=== PATIENT | female | born 1990 | race American Indian/Alaskan Native ===

== ENCOUNTER 2016-10-11 19:46 | Outpatient (CLI) | payer MEDICAID ==
[2016-10-11 20:05] VITALS: BP 137/77
[2016-10-11] MEDS ORDERED: LACTATED RINGERS 1,000 ML IV ONE (20:19)
[2016-10-11 20:59] LABS: Bacteria,Urine 3+ /HPF (Negative); Bilirubin,Urine NEG (Negative); Blood,Urine NEG (Negative); Ketones,Urine NEG (Negative); Leukocyte Esterase,Urine LG (Negative); Mucus,Urine FEW /HPF; Nitrite,Urine NEG (Negative); Protein,Urine <15 mg/dL mg/dL (Negative); Urobilinogen,Urine < 2.0 mg/dL (<2.0)
== END 2016-10-11 21:22 | disposition home or self-care (01) ==
LOC: TRG 19:46
PROVIDERS: ATTEND Obstetrics & Gynecology
DX: O47.03 False labor before 37 completed weeks of gestation, third trimester (principal); Z3A.30 30 weeks gestation of pregnancy
CPT/HCPCS: 81001

== ENCOUNTER 2016-12-06 23:00 | Inpatient (IN) | payer MEDICAID ==
[2016-12-07] MEDS ORDERED: LACTATED RINGERS 1,000 ML IV ONE (01:11)
[2016-12-07 01:57] LABS: Hematocrit 32.9 % (30.3-42.9); Hemoglobin 10.9 gm/dl (10.1-14.3); Mean Corpuscular HGB Conc 33 % (30-34); Platelet Count 223 K/mm3 (140-440); Red Blood Count 5.19 M/mm3 (3.65-5.03); Red Cell Distribution Width 17.2 % (13.2-15.2); White Blood Count 6.6 K/mm3 (4.5-11.0)
[2016-12-07 01:59] LABS: Mean Corpuscular Hemoglobin 21 pg (28-32); Mean Corpuscular Volume 64 fl (79-97)
[2016-12-07] MEDS ORDERED: TYLENOL PO PRN ×2 (02:23→10:30)
[2016-12-07] MEDS ORDERED: COLACE PO PRN (02:23)
[2016-12-07] MEDS ORDERED: AMBIEN PO PRN (02:23)
--- NOTE | 2016-12-07 02:23 | History and Physical Report ---
History of Present Illness Date of examination: 12/07/16 Chief complaint: Diarrhea/frequent loose stools and non-reassuring status History of present illness: 26 yo with normal and early care for this who was seen in office today and who called me with persistent painful contractions q 10 minnutes and diarrhea/freguent loose stools. She was sent to triage and initially her cervix was unchanged from the office at 2 cm and 70% effaced and intact and status was Cat 1 with spaced out contractions. After a time of monitoring, I was called by triage nurse Masoud because of a change in status to tachycardia in the 170-180's. She is admitted to further assess status with BPP and WAYLON and prolonged monitoring, will consider induction of labor for non-reassuring status if fetus does not respond to maternal hydration. Currently maternal temp is 97.8. Known GBS negative, O pos, Rub Immune. Remainder of H&P is from [facility] and will be confirmed today Vital Signs Height: 64.0 in. Weight (lb): 145 BMI: 24.9 Pre- Weight: 145 BP: 112/ 62 mm Hg Chief Complaint/Current Status: c/o missed period, c/o nauseated...............................igarcia pt c/o spots on arms and legs Menstrual History Regularity: regular Menses every: 28 days Duration: 3-4 LMP: 03/12/2016 LMP reliability: month known LMP character: normal test type: urine test Date: 05/10/2016 BC at conception: none Planned ? no EDC Calculations LMP: 12/17/2016 EDC Confirmation: 12/17/2016 Gestational Age: 8 3/7 weeks Past History : 5 Term Births: 4 Premature Births: 0 Living Children: 4 Para: 4 Mult. Births: 0 Prev : 0 Prev. attempt? 0 Aborta: 0 Elect. Ab: 0 Spont. Ab: 0 Ectopics: 0 # 1 Delivery date: 02/01/2010 Weeks Gestation: 39.3 Delivery type: Vaginal Anesthesia type: epidural Delivery location: [facility] Sex: male weight: 7.31 Comments: none # 2 Delivery date: 10/22/2012 Weeks Gestation: 38 Delivery type: Vaginal Delivery location: [facility] Sex: male weight: 6.38 Comments: elevated BP # 3 Delivery date: 12/29/2013 Weeks Gestation: 38 Delivery type: Vaginal Anesthesia type: epidural Delivery location: [facility] Sex: female weight: 6.44 Comments: PROM # 4 Delivery date: 03/04/2015 Weeks Gestation: 40+4 Delivery type: Vaginal Anesthesia type: none Delivery location: [facility] Sex: female weight: 6.50 Comments: none Past Medical History: Reviewed history from 03/06/2012 and no changes required: Negative Past Medical History Past Surgical History: Reviewed history from 12/11/2009 and no changes required: negative Past Medical History Abnormal PAP: No ELBA Exposure: negative Infertility: negative Uterine Anomaly: negative Uterine Surgery (not C/S): negative Other Gynecologic Problems: negative Social Hx: Patient is single no e/t/d Genetic History Congenital Heart Defect: Mom: no Dad: no Craig Disease: Mom: no Dad: no Thalassemia Mom: no Dad: no Neural Tube Defect Mom: no Dad: no Down's Syndrome Mom: no Dad: no Jc-Sachs Mom: no Dad: no Sickle Cell Disease/Trait Mom: no Dad: no Hemophilia Mom: no Dad: no Muscular Dystrophy Mom: no Dad: no Cystic Fibrosis Mom: no Dad: no Franca Chorea Mom: no Dad: no Mental Retardation Mom: no Dad: no Fragile X Mom: no Dad: no Other Genetic/Chromosomal Disorder Mom: no Dad: no Child w/other defect Mom: no Dad: no Enviromental Exposures Xray Exposure: no Medication, drug, or alcohol use since LMP: no Chemical/Other Exposure: no Exposure to Cat Liter: no Hx of Parvovirus (Fifth Disease): no Active Medications (reviewed today): FORMULA 27-1 MG ORAL TABS ( VIT-FE FUMARATE-FA) 1 po q day as directed PROMETHAZINE HCL 25 MG TABS (PROMETHAZINE HCL) 1 po q 6 hrs prn nausea Current Allergies (reviewed today): No known allergies Laboratory Results Date/Time Collected: 05/10/2016 Urine HCG: positive Review of Systems See HPI General Denies fever, chills, sweats, anorexia, fatigue, weakness, malaise, weight loss and sleep disorder. Denies vaginal discharge, incontinence, dysuria, hematuria, urinary frequency, amenorrhea, menorrhagia, abnormal vaginal bleeding, pelvic pain, genital sores, decreased libido, painful periods, painful sex, urinary urgency, hot flashes, vaginal dryness, vaginal itching and vaginal odor. CV Denies chest pains, palpitations, syncope, dyspnea on exertion, orthopnea, PND and peripheral edema. Resp Denies cough, dyspnea at rest, excessive sputum, hemoptysis, wheezing and pleurisy. GI Denies nausea, vomiting, diarrhea, constipation, change in bowel habits, abdominal pain, melena, hematochezia, jaundice, gas/bloating, indigestion/ heartburn, dysphagia and odynophagia. Breast Denies left breast lump, right breast lump, nipple discharge, bloody discharge from nipple, breast pain, abnormal mammogram and breast enlargement. Psych Denies depression, anxiety, irritability and mood swings. PHYSICAL EXAM HEENT: normocephalic, no lesions or deformities Neck/Thyroid: supple, thyroid normal Skin no abnormal lesions or rashes Chest: respiratory effort normal, lungs clear to auscultation Breasts: skin/areolae normal, no masses, no nipple discharge, no erythema/warmth /tenderness, and axillae normal. CV: regular, normal S1-S2, no murmur, no rub, no gallop Abdomen: soft, non-tender, no masses, bowel sounds normal Musculoskeletal: grossly normal ROM in joints, no joint tenderness or muscle weakness Neuro: no gross anomalities Extremities: no discoloration or edema [employer] Exams Vulva/Vagina: normal appearance, no lesions. Cervix: normal appearance, no lesions. Uterus: unable to palpate due to patient's guarding Adnexae: unable to palpate due to patient's guarding Rectovaginal: exam defered Flowsheet View for Follow-up Visit Estimated weeks of gestation: 8 3/7 Weight: 145 Blood pressure: 112 / 62 Infant's Physician: N/A Past History - Obstetrical History : 5 Medications and Allergies Allergies Allergy/AdvReac Type Severity Reaction Status Date / Time No Known Allergies Allergy Verified 06/06/15 15:24 Home Medications Medication Instructions Recorded Confirmed Last Taken Type No Known Home Medications [No 03/05/15 06/06/15 Unknown History Reported Home Medications] - Vital Signs Vital signs: Vital Signs Pulse Pulse Ox 102 H 100 12/06/16 23:16 12/06/16 23:16 Temp Pulse Resp BP Pulse Ox 98.3 F 92 H 18 133/75 100 12/06/16 23:23 12/07/16 02:11 12/06/16 23:23 12/06/16 23:28 12/07/16 02:11 Results Result Diagrams: 12/07/16 01:30 Abnormal lab results 12/07/16 Range/Units 01:30 RBC 5.19 H (3.65-5.03) M/mm3 MCV 64 L (79-97) fl MCH 21 L (28-32) pg RDW 17.2 H (13.2-15.2) % All other labs normal. Assessment and Plan - Patient Problems (1) Non-reassuring status Current Visit: Yes Status: Acute Plan to address problem: prolonged monitoring, BPP, WAYLON (2) Colitis, enteritis, and gastroenteritis of presumed infectious origin Current Visit: Yes Status: Acute Plan to address problem: maternal rehydration, check electrolytes (3) Prolonged latent phase of labor Current Visit: Yes Status: Acute Plan to address problem: prolonged monitoring to assess this and maternal sedation (4) 38 weeks gestation of Current Visit: Yes Status: Acute
--- NOTE | 2016-12-07 02:42 | Event Note ---
Date: 12/07/16 tachycardia has resolved for the time being with maternal hydration. WAYLON is 7.9 and BPP is 6/8 but with now reactive NST is 8/10. Will observe overnight to be sure all this remains stable and to check electrolytes. Patient is probably in early or latent labor anyway. Will reevaluate if any changes.
[2016-12-07] MEDS ORDERED: LACTATED RINGERS 1,000 ML IV SCH (03:00)
[2016-12-07 04:04] LABS: Alanine Aminotransferase 6 units/L (7-56); Albumin 3.4 g/dL (3.9-5); Alkaline Phosphatase 159 units/L (35-129); Anion Gap 18 mmol/L; BUN/Creatinine Ratio 11.42; Blood Urea Nitrogen 8 mg/dL (7-17); Calcium 8.3 mg/dL (8.4-10.2); Carbon Dioxide 21 mmol/L (22-30); Chloride 100.4 mmol/L (98-107); Glucose 94 mg/dL (65-100); Potassium 3.7 mmol/L (3.6-5.0); Sodium 136 mmol/L (137-145); Total Protein 6.8 g/dL (6.3-8.2)
[2016-12-07] MEDS ORDERED: MINERAL OIL PO PRN (04:30)
[2016-12-07] MEDS ORDERED: STADOL IV PRN (04:30)
[2016-12-07] MEDS ORDERED: BRETHINE SUB-Q PRN (04:30)
[2016-12-07] MEDS ORDERED: ZOFRAN IV PRN (04:30)
[2016-12-07] MEDS ORDERED: XYLOCAINE 2% INFILTRATI ONE (04:30)
[2016-12-07] MEDS ORDERED: ePHEDrine SULFATE IV PRN ×2 (04:30→05:28)
[2016-12-07] MEDS ORDERED: NARCAN 0.4 MG/1 ML IV PRN (04:30)
[2016-12-07] MEDS ORDERED: BRETHINE IVP PRN (04:30)
[2016-12-07] MEDS ORDERED: SUBLIMAZE IV PRN (04:30)
--- NOTE | 2016-12-07 04:38 | Event Note ---
Date: 12/07/16 Now in active labor, has progressed to 4 cm. Will transfer to L&d and get epidural.
[2016-12-07] MEDS ORDERED: ePHEDrine SULFATE ONE (04:54)
[2016-12-07] MEDS ORDERED: PITOCin/NS 20 UNIT/1000ML DRIP 20 UNITS/1,000 ML BAG IV SCH ×2 (05:00→10:30)
[2016-12-07] MEDS ORDERED: PITOCin/NS 30 UNIT/500ML 30 UNITS/500 ML BAG IV SCH (05:00)
[2016-12-07] MEDS ORDERED: NARCAN 2 MG/2 ML IV PRN (05:28)
--- NOTE | 2016-12-07 05:28 | Anesthesia Consultation ---
Anesthesia Consult and Med Hx Date of service: 12/07/16 - Airway Anesthetic Teeth Evaluation: Good ROM Head & Neck: Adequate Mental/Hyoid Distance: Adequate Mallampati Class: Class II Intubation Access Assessment: Probably Good - Pulmonary Exam CTA: Yes - Cardiac Exam Cardiac Exam: RRR - Pre-Operative Health Status ASA Pre-Surgery Classification: ASA2 Proposed Anesthetic Plan: Epidural - Pulmonary Hx Asthma: No COPD: No Hx Pneumonia: No - Cardiovascular System Hx Hypertension: No - Central Nervous System Hx Seizures: No Hx Psychiatric Problems: No - Endocrine Hx Renal Disease: No Hx End Stage Renal Disease: No Hx Hypothyroidism: No Hx Hyperthyroidism: No - Hematic Hx Anemia: No Hx Sickle Cell Disease: No - Other Systems Hx Alcohol Use: No
[2016-12-07] MEDS: LACTATED RINGERS 1,000 ML IV SCH ×2 (05:42→07:25)
[2016-12-07] MEDS ORDERED: fentaNYL-BUPIV 2 MCG/ML-0.125% 200 MCG/100 ML BAG EPIDURAL SCH (06:00)
--- NOTE | 2016-12-07 07:40 | Progress Note ---
Assessment and Plan patient comfortable with epidural, AROM BBOW - clear,with ctx SVE ant lip. Anticipate . Dr. Darby aware. - Patient Problems (1) Active labor at term Current Visit: Yes Status: Acute (2) 38 weeks gestation of Current Visit: Yes Status: Acute Subjective - Subjective Date of service: 12/07/16 Principal diagnosis: IUP @ 38+ WEEKS, labor Patient reports: no new complaints Objective - Vital Signs Vital Signs: Vital Signs - 12hr 12/06/16 12/06/16 12/06/16 23:16 23:21 23:23 Temperature 98.3 F Pulse Rate 102 H 90 87 Respiratory 18 Rate Blood Pressure Blood Pressure 133/75 [Left] O2 Sat by Pulse 100 100 100 Oximetry 12/06/16 12/06/16 12/06/16 23:26 23:28 23:31 Temperature Pulse Rate 85 83 84 Respiratory Rate Blood Pressure 133/75 Blood Pressure [Left] O2 Sat by Pulse 100 100 Oximetry 12/06/16 12/06/16 12/06/16 23:36 23:41 23:46 Temperature Pulse Rate 86 81 84 Respiratory Rate Blood Pressure Blood Pressure [Left] O2 Sat by Pulse 99 99 99 Oximetry 12/06/16 12/07/16 12/07/16 23:59 00:04 00:09 Temperature Pulse Rate 82 79 83 Respiratory Rate Blood Pressure Blood Pressure [Left] O2 Sat by Pulse 100 100 100 Oximetry 12/07/16 12/07/16 12/07/16 00:14 00:19 00:24 Temperature Pulse Rate 93 H 90 94 H Respiratory Rate Blood Pressure Blood Pressure [Left] O2 Sat by Pulse 100 100 99 Oximetry 12/07/16 12/07/16 12/07/16 00:29 00:34 00:39 Temperature Pulse Rate 88 89 78 Respiratory Rate Blood Pressure Blood Pressure [Left] O2 Sat by Pulse 99 98 99 Oximetry 12/07/16 12/07/16 12/07/16 00:56 01:01 01:06 Temperature Pulse Rate 92 H 84 83 Respiratory Rate Blood Pressure Blood Pressure [Left] O2 Sat by Pulse 99 100 99 Oximetry 12/07/16 12/07/16 12/07/16 01:11 01:16 01:21 Temperature Pulse Rate 83 97 H 77 Respiratory Rate Blood Pressure Blood Pressure [Left] O2 Sat by Pulse 99 99 99 Oximetry 12/07/16 12/07/16 12/07/16 01:26 01:31 01:36 Temperature Pulse Rate 90 95 H 94 H Respiratory Rate Blood Pressure Blood Pressure [Left] O2 Sat by Pulse 99 99 98 Oximetry 12/07/16 12/07/16 12/07/16 01:41 01:46 01:51 Temperature Pulse Rate 90 81 79 Respiratory Rate Blood Pressure Blood Pressure [Left] O2 Sat by Pulse 99 99 99 Oximetry 12/07/16 12/07/16 12/07/16 01:56 02:01 02:11 Temperature Pulse Rate 81 76 92 H Respiratory Rate Blood Pressure Blood Pressure [Left] O2 Sat by Pulse 99 100 100 Oximetry 12/07/16 12/07/16 12/07/16 02:16 02:21 02:26 Temperature Pulse Rate 77 74 71 Respiratory Rate Blood Pressure Blood Pressure [Left] O2 Sat by Pulse 99 98 99 Oximetry 12/07/16 12/07/16 12/07/16 02:31 02:36 03:06 Temperature Pulse Rate 77 74 69 Respiratory Rate Blood Pressure Blood Pressure [Left] O2 Sat by Pulse 99 99 100 Oximetry 12/07/16 12/07/16 12/07/16 03:11 03:16 03:49 Temperature 97.7 F Pulse Rate 69 77 83 Respiratory 18 Rate Blood Pressure Blood Pressure 134/74 [Left] O2 Sat by Pulse 99 99 99 Oximetry 12/07/16 12/07/16 12/07/16 03:53 03:58 04:03 Temperature Pulse Rate 77 70 67 Respiratory Rate Blood Pressure 134/74 Blood Pressure [Left] O2 Sat by Pulse 99 100 100 Oximetry 12/07/16 12/07/16 12/07/16 04:08 04:13 04:18 Temperature Pulse Rate 67 68 76 Respiratory Rate Blood Pressure Blood Pressure [Left] O2 Sat by Pulse 100 100 99 Oximetry 12/07/16 12/07/16 12/07/16 04:23 04:26 04:28 Temperature Pulse Rate 69 25 L 74 Respiratory Rate Blood Pressure Blood Pressure [Left] O2 Sat by Pulse 96 83 L 98 Oximetry 12/07/16 12/07/16 12/07/16 04:33 04:38 04:43 Temperature Pulse Rate 70 65 81 Respiratory Rate Blood Pressure Blood Pressure [Left] O2 Sat by Pulse 99 99 99 Oximetry 0912/07/16 12/07/16 04:48 04:53 04:58 Temperature Pulse Rate 73 75 63 Respiratory Rate Blood Pressure Blood Pressure [Left] O2 Sat by Pulse 98 98 100 Oximetry 12/07/16 12/07/16 12/07/16 05:03 05:06 05:08 Temperature Pulse Rate 79 62 73 Respiratory Rate Blood Pressure 133/74 Blood Pressure [Left] O2 Sat by Pulse 100 78 L 99 Oximetry 12/07/16 12/07/16 12/07/16 05:10 05:12 05:13 Temperature Pulse Rate 77 75 73 Respiratory Rate Blood Pressure 140/62 128/61 Blood Pressure [Left] O2 Sat by Pulse 99 Oximetry 12/07/16 12/07/16 12/07/16 05:15 05:16 05:18 Temperature Pulse Rate 78 67 64 Respiratory Rate Blood Pressure 143/67 127/58 122/57 Blood Pressure [Left] O2 Sat by Pulse 98 Oximetry 12/07/16 12/07/16 12/07/16 05:21 05:22 05:23 Temperature Pulse Rate 71 82 71 Respiratory Rate Blood Pressure 124/58 135/60 Blood Pressure [Left] O2 Sat by Pulse 99 Oximetry 12/07/16 12/07/16 12/07/16 05:25 05:28 05:30 Temperature Pulse Rate 89 78 80 Respiratory Rate Blood Pressure 127/54 125/60 120/57 Blood Pressure [Left] O2 Sat by Pulse 98 Oximetry 12/07/16 12/07/16 12/07/16 05:32 05:33 05:38 Temperature Pulse Rate 73 68 77 Respiratory Rate Blood Pressure 115/54 118/59 Blood Pressure [Left] O2 Sat by Pulse 100 100 Oximetry 12/07/16 12/07/16 12/07/16 05:43 05:44 05:48 Temperature Pulse Rate 68 73 74 Respiratory Rate Blood Pressure 126/55 Blood Pressure [Left] O2 Sat by Pulse 100 100 Oximetry 12/07/16 12/07/16 12/07/16 05:53 05:55 05:58 Temperature Pulse Rate 72 67 68 Respiratory Rate Blood Pressure 118/56 Blood Pressure [Left] O2 Sat by Pulse 100 100 Oximetry 12/07/16 12/07/16 12/07/16 06:03 06:08 06:13 Temperature Pulse Rate 63 66 64 Respiratory Rate Blood Pressure 129/62 Blood Pressure [Left] O2 Sat by Pulse 100 100 100 Oximetry 12/07/16 12/07/16 12/07/16 06:18 06:23 06:28 Temperature Pulse Rate 79 61 64 Respiratory Rate Blood Pressure Blood Pressure [Left] O2 Sat by Pulse 100 100 100 Oximetry 12/07/16 12/07/16 12/07/16 06:33 06:38 06:43 Temperature Pulse Rate 74 74 82 Respiratory Rate Blood Pressure Blood Pressure [Left] O2 Sat by Pulse 99 98 98 Oximetry 12/07/16 12/07/16 12/07/16 06:47 06:48 06:53 Temperature Pulse Rate 67 71 73 Respiratory Rate Blood Pressure 119/67 Blood Pressure [Left] O2 Sat by Pulse 98 96 Oximetry 12/07/16 12/07/16 12/07/16 06:58 07:02 07:03 Temperature 98.1 F Pulse Rate 62 69 66 Respiratory 18 Rate Blood Pressure Blood Pressure 113/57 [Left] O2 Sat by Pulse 97 98 98 Oximetry 12/07/16 12/07/16 12/07/16 07:04 07:08 07:13 Temperature Pulse Rate 67 81 64 Respiratory Rate Blood Pressure 113/57 Blood Pressure [Left] O2 Sat by Pulse 97 98 Oximetry 12/07/16 12/07/16 12/07/16 07:18 07:23 07:28 Temperature Pulse Rate 75 66 63 Respiratory Rate Blood Pressure 111/53 Blood Pressure [Left] O2 Sat by Pulse 94 95 96 Oximetry 12/07/16 12/07/16 07:33 07:38 Temperature Pulse Rate 60 76 Respiratory Rate Blood Pressure Blood Pressure [Left] O2 Sat by Pulse 99 99 Oximetry - Exam Breasts: normal Cardiovascular: Regular rate Lungs: Clear to auscultation, Normal air movement Abdomen: Present: normal appearance Vulva: both: normal Uterus: Present: normal FHR: auscultation normal, category 2 Uterine Contraction Monitor Mode: External Cervical Dilatation: 9.5 (AROM clear) Cervical Effacement Percentage: 100 station: +1 Uterine Contraction Pattern: Regular Uterine Tone Measurement Phase: Contraction Uterine Contraction Intensity: Strong/Firm Extremities: normal Deep Tendon Reflex Grade: Normal +2 - Labs Labs: Abnormal Labs 12/07/16 12/07/16 01:30 03:18 RBC 5.19 H MCV 64 L MCH 21 L RDW 17.2 H Sodium 136 L Carbon Dioxide 21 L Calcium 8.3 L ALT 6 L Alkaline Phosphatase 159 H Albumin 3.4 L Laboratory Results - last 24 hr 12/07/16 12/07/16 12/07/16 01:30 03:18 03:18 WBC 6.6 RBC 5.19 H Hgb 10.9 Hct 32.9 MCV 64 L MCH 21 L MCHC 33 RDW 17.2 H Plt Count 223 Sodium 136 L Potassium 3.7 Chloride 100.4 Carbon Dioxide 21 L Anion Gap 18 BUN 8 Creatinine 0.7 Estimated GFR > 60 BUN/Creatinine Ratio 11.42 Glucose 94 Calcium 8.3 L Total Bilirubin 0.20 AST 14 ALT 6 L Alkaline Phosphatase 159 H Total Protein 6.8 Albumin 3.4 L Albumin/Globulin Ratio 1.0 Blood Type O POSITIVE Antibody Screen Negative
--- NOTE | 2016-12-07 07:41 | Ultrasound Report ---
ULTRASOUND BIOPHYSICAL PROFILE: History: well being Technique: Transabdominal ultrasound with Doppler interrogation. 0 - breathing movements 2 - movements 2 - posture and tone 2 - Qualitative amniotic fluid volume 6 - TOTAL SCORE OF POSSIBLE 8 Heart Rate (bpm) 185
--- NOTE | 2016-12-07 07:42 | Ultrasound Report ---
ULTRASOUND OB LIMITED History: well being, evaluate amniotic fluid Technique: Transabdominal ultrasound with Doppler interrogation. Gestation: Single Amniotic Fluid: Normal WAYLON = 7.9 cm Heart Rate: 158 BPM
--- NOTE | 2016-12-07 08:23 | Procedure Note ---
OB Delivery Note - Delivery Date of Delivery: 12/07/16 () Entertainment Lawyer: FLAVIO BAILEY Estimated blood loss: 200cc - Vaginal Delivery presentation: vertex Delivery position: OA Intrapartum events: none Delivery induction: none Delivery augmentation: rupture of membranes, pitocin Delivery monitor: external FHT, external uterine Route of delivery: Delivery placenta: spontaneous Delivery cord: 3 umbilical vessels Episiotomy: none Delivery laceration: none Anesthesia: epidural Delivery comments: Male del over intact perineum, FAM w/ left hand del with head. no shoulder dystocia. dried and stimulated, then placed skin to skin per patient request. Cord clamped and cut, cord blood collected. 3 vessel cord. Placenta del intact and complete. Pit to IVF. no laceration to repair. hemostatic, 's weight 6#4, apgars 8/9. EBL 200. Mother and remain LDR stable. - Infant A at 1 minute: 8 at 5 minutes: 9 Gender: Male (6#4)
[2016-12-07] MEDS ORDERED: PRENATAL VITAMIN PO SCH (10:00)
[2016-12-07] MEDS ORDERED: DERMOPLAST TP PRN (10:30)
[2016-12-07] MEDS ORDERED: DULCOLAX PR PRN (10:30)
[2016-12-07] MEDS ORDERED: TUCKS PAD TP PRN (10:30)
[2016-12-07] MEDS ORDERED: BENADRYL PO PRN (10:30)
[2016-12-07] MEDS ORDERED: LANSINOH TP PRN (10:30)
[2016-12-07] MEDS ORDERED: PHENERGAN PO PRN (10:30)
[2016-12-07] MEDS ORDERED: SODIUM CHLORIDE FLUSH SYRINGE 10 ML IV PRN (10:30)
[2016-12-07] MEDS: NORCO 5/325 PO PRN ×2 (11:24→12:00)
[2016-12-07] MEDS: MOTRIN PO SCH ×3 (11:26→23:39)
[2016-12-07 21:03] LABS: Hematocrit 30.8 % (30.3-42.9); Hemoglobin 9.7 gm/dl (10.1-14.3)
[2016-12-07] MEDS ORDERED: MILK OF MAGNESIA PO PRN (22:00)
[2016-12-08] MEDS: MOTRIN PO SCH (05:27)
[2016-12-08] MEDS ORDERED: BOOSTRIX IM ONE (06:00)
--- NOTE | 2016-12-08 06:08 | Discharge Summary ---
Providers - Providers Date of Admission: 12/07/16 02:45 Date of discharge: 12/08/16 (pt agrees with d/c) Attending physician: KATHLEEN KEARNEY Primary care physician: KATHLEEN KEARNEY Hospitalization Reason for admission: active labor Delivery: Episiotomy: none Laceration: none Incision: normal Other procedures: none complications: none Discharge diagnosis: IUP at term delivered baby: male Hospital course: uncomplicated vaginal delivery Pt w/o complaint VSS FF below umb Lochia small Perineum intact H&H 12/24 drop r/ t blood loss from delivery Pt is asymptomatic Doing well s/p vag delivery. P: d/c today with instructions Pt desires Depo @ d/ c Ordered. RTO 1 week circ for son and 4 weeks for PP care Condition at discharge: Good Disposition: DC-01 TO HOME OR SELFCARE - Discharge Diagnoses (1) Vaginal delivery Status: Acute Comment: rto 4 weeks for PP care Plan - Discharge Medications Prescriptions: Ibuprofen [Motrin 800 MG tab] 800 mg PO Q8HR PRN #30 tablet PRN Reason: Pain Lidocain2.5%/Prilocai2.5% [Emla] 5 gm TP ONCE PRN #1 tube PRN Reason: Pain - Provider Discharge Summary Activity: routine, no sex for 6 weeks, no heavy lifting 4 weeks, no strenuous exercise Diet: routine Instructions: routine Additional instructions: [] Smoking cessation referral if applicable(refer to patient education folder for contact #) [] Refer to [facility] Booklet Call your doctor immediately for: * Fever > 100.5 * Heavy vaginal bleeding ( >1 pad per hour) * Severe persistent headache * Shortness of breath * Reddened, hot, painful area to leg or breast * Drainage or odor from incision. * Keep incision clean and dry at all times and follow doctor's instructions regarding bathing/showering - Follow up plan Follow up: KATHLEEN KEARNEY MD [Primary Care Provider] - 01/09/17 (Congratulations! Please call [phone] to schedule your visit in 4 weeks and your son's circumcision in 1 week. Bring the EMLA cream with you to his visit. Call with concerns.)
[2016-12-08] MEDS ORDERED: DEPO-PROVERA (CONTRACEPTION) IM ONE (06:30)
--- NOTE | 2016-12-08 13:54 | Progress Note ---
Subjective Date of service: 12/08/16 Principal diagnosis: IUP @ 38+ WEEKS, labor Interval history: Epidural previously removed. No anesthetic related complaints. Objective - Constitutional Vitals: Vital Signs - 12hr 12/08/16 08:35 Temperature 97.9 F Pulse Rate 75 Respiratory 19 Rate Blood Pressure 122/65 [Right] - Labs CBC & Chem 7: 12/07/16 20:27 12/07/16 03:18 Labs: Abnormal lab results 12/07/16 Range/Units 20:27 Hgb 9.7 L (10.1-14.3) gm/dl
[2016-12-08 17:47] VITALS: BP 124/70
== END 2016-12-08 15:30 | disposition home or self-care (01) | DRG 775 ==
LOC: TRG 23:00 → LD 12-07 02:45 → OBSVTOIN 12-07 02:45 → LD 12-07 03:53 → OB 12-07 09:23
PROVIDERS: ADMIT Obstetrics & Gynecology; ATTEND Obstetrics & Gynecology
PROC: 10907ZC Drainage of Amniotic Fluid, Therapeutic from Products of Conception, Via Natural or Artificial Opening (ICD-10-PCS; principal; 2016-12-07)
PROC: 10E0XZZ Delivery of Products of Conception, External Approach (ICD-10-PCS; 2016-12-07)
PROC: 3E0S3CZ (ICD-10-PCS; 2016-12-07)
PROC: 00HU33Z Insertion of Infusion Device into Spinal Canal, Percutaneous Approach (ICD-10-PCS; 2016-12-07)
DX: O76 Abnormality in fetal heart rate and rhythm complicating labor and delivery (principal); O63.9 Long labor, unspecified; O99.62 Diseases of the digestive system complicating childbirth; O75.89 Other specified complications of labor and delivery; K52.9 Noninfective gastroenteritis and colitis, unspecified; Z3A.38 38 weeks gestation of pregnancy; Z37.0 Single live birth
CPT/HCPCS: 36415; 76815; 76819; 80053; 85014; 85018; 85027; 86850; 86900; 86901; J2405; J2590; J7120